=== PATIENT | female | born 2000 | race Caucasian/White ===

== ENCOUNTER 2018-03-24 21:39 | Inpatient (IN) | payer MEDICAID ==
[~2018-03-24] VITALS: Ht 147.3 cm; Wt 55.0 kg
[2018-03-24 21:48] VITALS: BP 126/77
[2018-03-24] MEDS ORDERED: VITAMIN D1000 UNI1 PO (21:55)
[2018-03-24] MEDS ORDERED: PROZAC20 MG PO (21:55)
[2018-03-24] MEDS ORDERED: LANTUS SUBQ (21:59)
[2018-03-24] MEDS ORDERED: NOVOLOG100 UNIT/M SUBQ (22:01)
[2018-03-24] MEDS ORDERED: OMEPRAZOLE5 GM (22:01)
[2018-03-24] MEDS ORDERED: QVAR REDIHALE10.6 G1 (22:04)
[2018-03-24] MEDS ORDERED: PULMOZYME1 MG/1 ML (22:04)
[2018-03-24] MEDS ORDERED: KEPPRA250 MG PO (22:04)
[2018-03-24 22:05] LABS: URINE BILIRUBIN NEGATIVE (Negative); URINE BLOOD NEGATIVE (Negative); URINE CLARITY CLEAR; URINE COLOR STRAW; URINE GLUCOSE-RANDOM 3+ (Negative); URINE KETONES NEGATIVE (Negative); URINE LEUKOCYTES NEGATIVE (Negative); URINE NITRITE NEGATIVE (Negative); URINE PROTEIN NEGATIVE (Negative); URINE SPECIFIC GRAVITY <= 1.005 (1.005-1.030); URINE UROBILINOGEN 0.2 E.U./dl (0.2-1.0)
[2018-03-24] MEDS ORDERED: MIRALAX17 GM PO (22:05)
[2018-03-24] MEDS ORDERED: CREON DR 12,001 EACH PO (22:05)
[2018-03-24] MEDS ORDERED: ZYRTEC10 M5 PO (22:06)
[2018-03-24 22:19] LABS: ABSOLUTE EOSINOPHILS 0.1 thou/uL (0.0-0.7); ABSOLUTE LYMPHOCYTES 1.3 thou/uL (0.8-5.3); ABSOLUTE MONOCYTES 0.3 thou/uL (0.0-1.2); ABSOLUTE NEUTROPHILS 6.7 thou/uL (1.6-8.1); BASOPHILS 0.2 %; EOSINOPHILS 1.2 %; HEMATOCRIT 42.1 % (37.0-47.0); HEMOGLOBIN 13.9 gm/dL (12.0-15.0); LYMPHOCYTES 15.2 %; MCH 27.6 pg (26.0-34.0); MCHC 32.9 g/dL (28.0-37.0); MCV 83.9 fL (80.0-100.0); MONOCYTES 3.4 %; MPV 11.2 fl. (7.2-11.1); NUCLEATED RBCS 0 /100WBC; PLATELET COUNT* 243 thou/uL (150-400); RBC 5.02 mil/uL (4.20-5.00); RDW-CV 12.9 % (10.5-14.5); WBC 8.4 thou/uL (4.0-11.0)
[2018-03-24 22:30] LABS: CALCIUM 9.5 mg/dL (8.5-10.1); CREATININE 1.2 mg/dL (0.6-1.3); POTASSIUM 4.4 mmol/L (3.5-5.1)
[2018-03-24 22:32] LABS: ALBUMIN 3.7 g/dL (3.4-5.0); TOTAL BILIRUBIN 0.4 mg/dL (<0.1-1.0)
[2018-03-24 23:19] LABS: BE -5.8 mmol/L (-2 to +3); HCO3 18.9 mmol/L (22.0-26.0); PCO2 34.6 mmHg (35.0-45.0); PO2 76.9 mmHg (75.0-100.0); pH 7.355 (7.340-7.450)
[2018-03-25] VITALS (8 sets, daily range): BP systolic 93–151; BP diastolic 42–112
[2018-03-25 05:18] LABS: HEMATOCRIT 36.9 % (37.0-47.0); HEMOGLOBIN 12.7 gm/dL (12.0-15.0); MCH 27.9 pg (26.0-34.0); MCHC 34.3 g/dL (28.0-37.0); MCV 81.4 fL (80.0-100.0); MPV 11.2 fl. (7.2-11.1); RBC 4.53 mil/uL (4.20-5.00)
[2018-03-25 06:01] LABS: ALBUMIN 3.3 g/dL (3.4-5.0); CALCIUM 9.2 mg/dL (8.5-10.1); CREATININE 0.5 mg/dL (0.6-1.3); TOTAL BILIRUBIN 0.3 mg/dL (<0.1-1.0); TOTAL PROTEIN 6.5 g/dL (6.4-8.2)
[2018-03-25 06:18] LABS: POTASSIUM 3.4 mmol/L (3.5-5.1)
[2018-03-25 12:01] LABS: CALCIUM 8.1 mg/dL (8.5-10.1); CREATININE 0.5 mg/dL (0.6-1.3); MAGNESIUM 1.4 mg/dL (1.8-2.4); POTASSIUM 3.5 mmol/L (3.5-5.1)
== END 2018-03-25 17:45 | disposition left against medical advice (07) | DRG 638 ==
LOC: M.ERS 21:39 → M.ICU 03-25 00:16 → M.TBA-ER 03-25 00:16 → M.ICU 03-25 00:23
PROVIDERS: Emergency Medicine; Family Medicine; Nurse Practitioner Family; ADMIT Internal Medicine
DX: E10.65 Type 1 diabetes mellitus with hyperglycemia (principal); E84.9 Cystic fibrosis, unspecified; G40.909 Epilepsy, unspecified, not intractable, without status epilepticus; E86.0 Dehydration; Z53.21 Procedure and treatment not carried out due to patient leaving prior to being seen by health care provider; Z88.8 Allergy status to other drugs, medicaments and biological substances; Z82.49 Family history of ischemic heart disease and other diseases of the circulatory system; Z28.21 Immunization not carried out because of patient refusal; Z79.899 Other long term (current) drug therapy